=== PATIENT | female | born 1955 | race Caucasian/White ===

== ENCOUNTER 2017-07-20 06:23 | Outpatient (CLI) | payer BC ==
[~2017-07-20] VITALS: Ht 160 cm; Wt 98.6 kg
--- NOTE | ~2017-07-20 | CATH ---
Cardiac Diagnostic Report Demographics Patient Name SANJAY Aranda Gender Female Date of 1955 Age 61 year(s) Patient Number [id number] Date of Study 07/20/2017 Visit Number [id number] Room Number G6399 [place] [id number] Ht 160.02 cm Wt 98.69 kg Referring Wei Farrah Dodge Primary Physician Physician Performing Meredith Dee MD Secondary Physician Physician Diagnostic Meredith Dee MD Assisting Physician Physician Interventional Physician Faculty Head Physician Findings and Conclusions Diagnostic Findings and Conclusion Nonobstructive CAD Normal LV function Diagnostic Recommendations Medical therapy Procedure Description The patient was brought to the diagnostic cardiac catheterization-EP laboratory in the fasting, non-sedated state. Informed consent was obtained in the written and verbal form after the risks and benefits were explained. The patient had no further questions and agreed to proceed. The planned puncture-incision site(s) were shaved and prepped with ChloraPrep and draped in the usual sterile manner. Conscious sedation, supplemental oxygen, and pain control medications were delivered by a registered nurse under physician guidance. Surface ECG rhythm, blood pressure measurement, and pulse oximetry were monitored throughout the procedure. Arterial access. The access site was infiltrated with lidocaine. The vessel was entered with the Seldinger technique. A sheath was advanced into the vessel and used for catheter placement. Selective left coronary angiography. A catheter was advanced into the left coronary vessel ostium under Fluoroscopic guidance. Contrast was injected by hand. Images were obtained in multiple projections. Selective right coronary angiography. A catheter was advanced into the right coronary vessel ostium under fluoroscopic guidance. Contrast was injected by hand. Images were obtained in multiple projections. Left heart catheterization with ventriculography. A catheter was advanced across the aortic valve to the left ventricle under fluoroscopic guidance. Resting hemodynamics were obtained. With the catheter at the left ventricular apex, contrast was injected. Images were obtained in AMERICAN projections. Post-ventriculography LV pressure was obtained. The catheter was gradually withdrawn into the aorta with continuous pressure recording. Arterial artery hemostasis was achieved. The patient was transferred to a regular nursing floor via cart accompanied by a nurse. The patient left the laboratory in stable condition. Diagnostic Cath Status: Elective Procedure Procedure Type Diagnostic procedure:Ventriculogram:, Left, Angiography:, Coronary Angios w/[facility] Indications: Dyspnea with exertion. The procedure was explained in detail to the patient. Risks, complications and alternative treatments were reviewed. Written consent was obtained. Medications Reviewed with Patient prior to Procedure. Angiographic Findings Dominance: Right Cardiac Arteries and Lesion Findings LMCA: Normal (0% Stenosis).Large, normal. LAD: LAD large, proximal and mid normal, mid to distal medium. Diagonal 1 medium, ok. Lesion on Dist LAD: Mid subsection.50% stenosis . LCx: Normal (0% Stenosis).Circumflex nondominant, small, ok RCA: RCA large dominant, mild plaque PL large PDA medium, normal Lesion on 1st RPL: Mid subsection.50% stenosis . Coronary Tree Procedure Data Procedure Date Date: 07/20/2017Start: 09:47 AMEnd: 10:18 AM Entry Locations - Retrograde Percutaneous access was performed through the Right Radial artery (Primary location). A 6 Fr sheath was inserted. Unsuccessful closure attempt was performed using: an R band. Hemostasis was successfully obtained using Mechanical Compression. Closure Comments: 10 cc of air in R band. Procedure Medications Order and Administration + + + + + !Time !Medication !Dosage !Route ! + + + + + !07/20/2017 09:43 AM !Versed !1 mg !I.V. ! + + + + + !07/20/2017 09:43 AM !Fentanyl !50 mcg !I.V. ! + + + + + !07/20/2017 09:45 AM !Versed !1 mg !I.V. ! + + + + + !07/20/2017 09:49 AM !Radial Heparin (ACC_3) !5000 units !I.A. ! + + + + + !07/20/2017 09:50 AM !Radial Nitroglycerin !200 mcg !I.A. ! + + + + + !07/20/2017 09:50 AM !Radial Verapamil !3 mg !I.A. ! + + + + + !07/20/2017 09:53 AM !0.9% NaCl !250 ml !I.V. bolus ! + + + + + Devices Used - A6 Fr. BS JR 4 Diag. Catheterwas used for:Right coronary angiography. - A6 Fr. BS JL 3.5 Diag. Catheterwas used for:Left coronary angiography. - A6 Fr. BS Angled Pigtail Diag. Catheterwas used for:Left ventriculography. Contrast Material - Isovue [id number] ml Fluoroscopy Time: Diagnostic: 8:30 minutes. Total: 8:30 minutes. Fluoroscopy Dose: Diagnostic: 950 mGy. Total: 950 mGy. Estimated Blood Loss: 2 ml. Medical History Performed Procedures and Imaging Results - Stress testing with SPECT MPIwas performed on 06/29/2017. Results were: Positive. Allergies - Latex. Risk Factors The patient risk factors include:treated hypertension and family history of premature CAD. Admission Data Admission Date: 07/20/2017 Admission Time: 06:23 AM Admit Source: Other Insurance Payors: [employer] health insurance. Admission Medications + +------+------+ + + + + !Medication !Dosage!Times !Last !Last !Administered !Comments ! ! ! !Per !Delivery !Delivery ! ! ! ! ! !Day !Date !Time ! ! ! + +------+------+ + + + + !Aspirin ! ! ! ! ! ! ! !(any) ! ! ! ! ! ! ! + +------+------+ + + + + !ARB (any) ! ! ! ! ! ! ! + +------+------+ + + + + !Beta ! ! ! ! ! ! ! !Santhosh ! ! ! ! ! ! ! !(any) ! ! ! ! ! ! ! + +------+------+ + + + + Clinical Evaluation Leading to Procedure - The patient's CAD presentation was assessed as: Unstable angina. - The patient's anginal syndrome during the past two weeks was assessed as: Class III according to the [place] Cardi[employer] Classification System (CCS). VA LV function assessed as:Normal. Ejection Fraction - 07/20/2017 - Method: LV gram. EF%: 65. Hemodynamics Condition: Rest O2 Consumption: Estimated: 180.90Heart Rate: 58 bpm Pressures (mmHg) +-----+ + !Site !Pressure ! +-----+ + !AO !90/53 (71) ! +-----+ + !AO !84/48 (64) ! +-----+ + !LV !110/8 ,19 ! +-----+ + !LV !106/8 ,18 ! +-----+ + !LV !106/7 ,19 ! +-----+ + !AO !105/58 (80) ! +-----+ + !LV !104/6 ,18 ! +-----+ + Valve Gradients and Areas + +---------+---------+---------+ +---------+ + !Valve !Peak !Mean !Area !Index !Flow !Source ! + +---------+---------+---------+ +---------+ + !Aortic !0 !0 ! ! ! ! ! + +---------+---------+---------+ +---------+ + !Aortic !0 !0 ! ! ! ! ! + +---------+---------+---------+ +---------+ + Shunts Oxygen Values O2 Capacity 183.6 O2 Consumption 180.9 Discharge Data Discharge Date: 07/20/2017 Hospital Status: Outpatient Signatures dtt: Luiz Harper (cardio) dtd: 07/20/17 0947 Physician Self Edit
[~2017-07-20 06:23] MED LIST: ALDACTONE50 MG PO; ASPIRIN LO-DOSE81 MG PO; BUPROPION XL150 MG PO; GUMMI BEAR MUL1 EACH PO; HYZAAR 100-12.1 EACH PO
[2017-07-20] MEDS ORDERED: LOPRESSOR25 MG PO (07:39)
== END 2017-07-20 13:10 | disposition disaster alternative care site (69) ==
LOC: GCAT 06:23 → GPCU 06:23 → GPOC 07:00 → GCAT 13:10
PROC: 4A023N7 Measurement of Cardiac Sampling and Pressure, Left Heart, Percutaneous Approach (ICD-10-PCS; principal; 2017-07-20)
PROC: B216YZZ Fluoroscopy of Right and Left Heart using Other Contrast (ICD-10-PCS; 2017-07-20)
DX: I25.110 Atherosclerotic heart disease of native coronary artery with unstable angina pectoris (principal); I10 Essential (primary) hypertension; Z82.49 Family history of ischemic heart disease and other diseases of the circulatory system
CPT/HCPCS: C1894; J1644; J2001; J2250; J3010; J7030